=== PATIENT | female | born 2005 | race African-American/Black ===

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

== ENCOUNTER 2025-03-06 16:10 | Outpatient (AMB) | payer OTHER, SELFPAY ==
--- NOTE | 2025-03-06 16:22 | AM.OFFVISNUR ---
Vital Signs 03/06/25 16:40 Height 5 ft 7.5 in Weight 184 lb 2 oz BMI 28.4 BP 120/78 Intake Visit Reasons: Depo Gold Assayer Required: No Allergies seasonal Allergy (Unknown, Uncoded 03/06/25 16:41) Sneezing Nursing Note Pt is here today for Depo inj. Depo given, pt tolerated well and will return in 3 mo. Office Procedures Depo Questionnaire If YES to any of the following questions, please consult a provider. Form completed by?: Office Meds Depo-Provera 150 mg/mL intramuscular suspension Performing Provider: Sharyn Carver PA-C Performing Location: [facility] [place] [facility] Administered by: Jazmine Patel RN on 03/06/25 16:27 Dose Route Admin Location Dispensed Lot Number Expiration Date [facility] Roller Staker 150 mg IM left deltoid 1 mL [id number] 05/22/27 32097-978-50 [facility] Total Dispensed Waste 1 mL 0 % Assessment & Plan Assessment & Plan Orders: Orders AMB Medroxyprogesterone Injection Patient Supplied Today Z30.9 - Encounter for contraceptive management, unspecified Coding
[2025-03-06 16:40] VITALS: BP 120/78; BMI 28.4
== END 2025-03-06 16:40 | disposition home or self-care (01) ==
LOC: HO.HMCP 16:11
PROVIDERS: PCP Physician Assistant; Visit Provider Physician Assistant
DX: Z30.9 Encounter for contraceptive management, unspecified (principal)

== ENCOUNTER → 2025-03-06 16:10 | Outpatient (BNVA) | payer OTHER, SELFPAY | PROVIDERS: PCP Physician Assistant; Visit Provider Physician Assistant | DX: Z30.42 Encounter for surveillance of injectable contraceptive (principal) | CPT/HCPCS: 96372; J1050 ==